=== PATIENT | female | born 1940 | race Caucasian/White ===

== ENCOUNTER 2019-09-14 11:41 | Outpatient (CLI) | payer MEDICARE, SELFPAY ==
[2019-09-14 12:13] LABS: Basophils % 0.8 %; Eosinophils # 0.2 10^3/uL (0.0-0.8); Eosinophils % 4.1 %; Hematocrit 41.4 % (37.0-47.0); Lymphocytes # 1.3 10^3/uL (0.8-4.8); Mean Corpuscular HGB Conc 31.4 g/dL (30.0-36.0); Mean Corpuscular Hemoglobin 30.8 pg (28.0-34.0); Mean Corpuscular Volume 98.1 fL (81-99); Monocytes # 0.4 10^3/uL (0.2-0.9); Monocytes % 8.4 %; Neutrophils % 60.5 %; Nucleated Red Blood Cells % 0 %; Platelet Count 162 10^3/cmm (130-400); Red Blood Count 4.22 10^6/uL (4.1-5.3); Red Cell Distribution Width 14.5 % (12.1-15.1); White Blood Count 4.9 10^3/uL (4.0-10.0)
[2019-09-14 12:56] LABS: Alanine Aminotransferase 10 U/L (0-33); Albumin Level 3.8 g/dL (3.5-5.2); Alkaline Phosphatase 82 IU/L (35-105); Anion Gap 15.1 (5-19); Aspartate Amino Transferase 17 U/L (0-32); Blood Urea Nitrogen 16 mg/dL (8-23); Calcium 10.2 mg/dL (8.5-10.5); Carbon Dioxide 28 mmol/L (22-29); Chloride 103 mmol/L (98-107); Globulin 3.1 g/dL (1.3-4.6); Glucose 102 mg/dL (65-115); Lactate Dehydrogenase 140 U/L (135-214); Potassium 4.1 mmol/L (3.5-5.1); Sodium 142 mmol/L (136-145); Total Bilirubin 0.5 mg/dL (0.15-1.2); Total Protein 6.9 g/dL (6.6-8.7)
--- NOTE | 2019-09-15 16:26 | ONC FU_ITS ---
Dr. Lagunas Patient Follow-Up Note Patient: Ammy Vargas Unit #: [id number]: 1940 Dicatated By: Elpidio Lagunas M.D.Date of Visit:Sep 14, 2019 Onc Med Follow-up/Prog Note Chief Complaint: Lymphoma. History of Present Illness: This is an 79 year-old woman with diffuse large B-cell lymphoma, stage IIIA. In July 2015 she developed a golf ball sized lump just below her left jaw. She says that it was treated with an antibiotic and it went away. In October she developed a second lump lower down in the left side of the neck. She was seen by Dr. Brunner 11/21/2015. On 11/29/[address] scans of the neck and chest along with CT-guided FNA biopsy of the neck mass. The CT scans reported a mass in the base of the left neck consistent with enlarged lymph node measuring 4.6 x 4.3 cm. An adjacent lymph node measured 3.1 x 1.8 cm just lateral to it. There was no other adenopathy in the neck area. There were lymph nodes in the left axilla measuring up to 2.9 x 1.6 cm with smaller lymph nodes present in the prevascular in the mediastinum measuring up to 1.2 cm. There were additional enlarged nodes in the retroperitoneum in the upper abdomen, the largest measuring 3.0 x 2.0 cm. The included portions of liver as well as the spleen, kidneys, and adrenal glands appeared unremarkable. The biopsy, though, was nondiagnostic. She was then referred to Dr. Angel and she underwent incisional biopsy of the neck mass on 12/05/2015. Pathology was consistent with malignant lymphoma, large cell, probably diffuse large B-cell lymphoma. By immunohistochemistry the neoplastic cells were noted to be positive for BCL-2, BCL-6, CD10, and CD20. The Ki-67 proliferative index was noted to be high. The tumor cells were negative for LUIS CARLOS YOSELIN, CD30, cyclin D1, MUM-1, and myc protein. I had seen her initially on 12/18/2015. She then had further staging with PET/CT and bone marrow biopsy. The PET/CT showed multiple FDG avid lymph nodes in the left cervical and left supraclavicular area, the largest measuring 3.0 cm. A left retropectoral lymph node measure 2.4 cm and a left anterior mediastinal lymph node measure 2.2 cm. Also noted was an infrarenal retrocaval node measuring 3.5 cm. The spleen was noted to be normal sized but with increased SUV of 4.2 compared to SUV 2.5 in the liver, suggesting possible splenic involvement. Bone marrow aspiration/biopsy on 12/23/2015 showed no involvement with lymphoma. Pathology was reviewed and was again felt to be consistent with diffuse large B-cell lymphoma. The immunohistochemical pattern appears consistent with germinal center B-cell subtype. Her initial LDH was mildly elevated, but a repeat study was normal at 242 U/L. As such, her IPI score and age adjusted IPI score were both in the low-intermediate risk category. She began treatment with R-CHOP chemotherapy, cycle 1 day 1 on 01/09/2016. She did receive cycle 1 prophylaxis with Neulasta. She did develop severe neutropenia, with fab granulocyte count 100, but she recovered uneventfully. Toxicities were otherwise limited to fatigue, mild stomatitis, and mild diarrhea. She then continued chemotherapy with no further dose reductions. She completed her 6th cycle of treatment on 04/22/2016. Her restaging PET/CT on 05/23/2016 showed a single precarinal lymph node measuring 1.2 cm with SUV 2.9 compared to 0.8 cm with no FDG uptake on the prior exam. There was resolution of all other areas of adenopathy. The finding was felt to be equivocal. Repeat CT of the chest on 11/16/2016 showed stable precarinal lymph node measuring 13 mm in its longest diameter. It was not significantly changed over the prior several examinations. There were no additional enlarged lymph nodes. She continued observation/expectant management. She has a history of COPD despite being a nonsmoker. Her other medical illnesses include hypertension, hyperlipidemia, hypothyroidism, GERD, and osteoporosis. INTERIM HISTORY: Surveillance CT scans of the chest, abdomen, and pelvis in 02/19/2017 showed no evidence of mediastinal or hilar lymphadenopathy. There was no abdominal or periaortic lymphadenopathy. There was no evidence of disease progression in the chest, abdomen, or pelvis. She was seen for a follow-up visit on 02/22/2017 and at that time she still complained of having heart fluttering, mainly when she was lying down in bed at night. An event monitor showed normal sinus rhythm with episodes of short runs of PAT's and atrial fibrillation with rapid ventricular rate. A prior Lexiscan MIBI stress test from 07/30/2016 had shown normal perfusion with low probability for obstructive coronary artery disease. She was seen at [facility], but she subsequently returned to see Dr. Lomeli and she then had cardiac evaluation with Dr. Estrada Braswell in [place]. In the course of that evaluation she was started on warfarin, but she was then found to have a low TSH level. Her levothyroxine dosage was reduced from 125 to 112 ???g per day, and her cardiac symptoms subsequently resolved. She initially continued anticoagulation with warfarin, but with subsequent transition to a apixaban. Her surveillance CT scans of the chest, abdomen, and pelvis on 02/24/2018 showed minimal increase in the size of a precarinal lymph node, measuring 10 mm. There was no evidence for recurrent lymphadenopathy in the chest, abdomen, or pelvis. She appears clinically stable at her follow-up visit on 02/28/2018, and she continued on observation/expectant management for the lymphoma. She was seen here on 08/08/2018. At that time she was concerned about some knots in her neck, but there was no evidence of soft tissue mass or lymphadenopathy on her neck CT, and CT of the chest also showed no evidence for a neoplastic process. She continued on observation/expectant management. She is seen for a scheduled visit. She has been feeling pretty good generally. She says that in April she had a skin cancer removed from the left side of her face. Her energy has been down due to bronchitis/flu. It is getting better now. Her ECOG score is 1. Appetite had been down also, but that is better now. She has gained weight. She has not had fever. She did have some night sweating during her recent illness, but that has resolved. She still has some residual cough. She has some shortness of breath with more strenuous activity. She does not have resting dyspnea. She has had some pain in the middle of her chest. She has no GI complaints. She says her bladder function is better. Yesterday she sustained a fracture to her left ring finger while loading wood into the pickup with her . She has no other joint or bone pain. She still has numbness/tingling in her hands and feet since the chemotherapy. Medications: Eliquis 1 Tablet (of 5 mg) Oral b.i.d., Famotidine 1 (40 mg) Tablet Oral b.i.d., Levothroid 1 Tablet (of 112 mcg) Oral daily, Losartan Potassium 1 Tablet (of 100 mg) Oral daily, Metoprolol Tartrate 0.5 Tablet (of 25 mg) Oral b.i.d., Nitroglycerin Tablet, sublingual Sublingual PRN Allergies: HYDROcodone Bitartrate, Levaquin, Sulfa Antibiotics, and Sulfites. Review of Systems: Constitutional - She was sick in July. Her energy is getting better. She does light work at home. Her appetite is good and her weight is up about 5 pounds since her last visit. No fever, chills or hot flashes. She had some sweating at night with her illness. It has been better the last few weeks. ECOG score is 1, ENMT - No sinus congestion/drainage. No mouth sores. No sore throat or difficulty swallowing, Hematologic/Lymphatic - She bruises easily, Respiratory - She has shortness of breath when climbing stairs. She has a cough. No pleuritic pain or hemoptysis, Cardiovascular - She has occasional chest pain/soreness. No palpitations, Gastrointestinal - No nausea or vomiting. She has some heartburn. No diarrhea or constipation. No blood in the stool or black stools, Genitourinary (F) - No dysuria or hematuria. She has urinary frequency at night. No urgency or incontinence, Musculoskeletal - She recently broke her left index finger. She does have some pain with that, Integumentary - She had surgery for a skin cancer removal of the left side of her upper lip, Neurologic - No headache or dizziness. She has numbness and tingling in her hands and toes, Psychiatric - No anxiety or depression. No insomnia. Vital Signs: Performed on Sep 14, 2019 13:07 Height - 60.00 in Weight - 139.2 lbs (HIGH) BSA - 1.60 sq.m BMI - 27.19 Temperature - 97.7 F (LOW) Pulse - 68 /min Respiration - 24 /min BP - 141/68 mm(hg) (HIGH) O2 Sat - 98 % Pain - 7 Physical Examination: Constitutional - She looks pretty good generally, Eyes - Sclerae nonicteric. Conjunctivae clear, ENMT - No lesions noted in the oral cavity, Hematologic/Lymphatic - No cervical, clavicular, or axillary adenopathy, Respiratory - Lungs are clear with some decrease in air movement bilaterally, Cardiovascular - Heart rhythm is regular. There is no murmur, gallop or rub noted, Abdomen - Mildly distended but soft. Liver and spleen are not enlarged. There is no abdominal mass or ascites noted and there is no inguinal adenopathy, Extremities - No lower extremity edema. There is significant swelling and ecchymosis involving the left ring finger. The ecchymosis extends into the distal aspect of the hand, Neurologic - No focal neurologic deficits noted. Lab/Imaging: Test performed on Sep 14, 2019 12:00 LDH (Total) 140 U/L Sodium 142 mmol/L Potassium 4.1 mmol/L Chloride 103 mmol/L CO2 28 mmol/L Anion Gap 15.1 BUN 16 mg/dL Creatinine 0.9 mg/dL Cr Clearance (Est) 49.69 mL/min Glucose 102 mg/dL Calcium 10.2 mg/dL Protein, Total 6.9 g/dL Albumin 3.8 g/dL Globulin 3.1 g/dL Bilirubin, Total 0.5 mg/dL ALT (SGPT) 10 U/L AST (SGOT) 17 U/L Alkaline Phosphatase 82 IU/L WBC 4.9 10 3/uL RBC 4.22 10 6/uL HGB 13.0 g/dL HCT 41.4 % MCV 98.1 fL MCH 30.8 pg MCHC 31.4 g/dL RDW 14.5 % Platelet Count 162 10 3/cmm MPV 11.0 fL Neutrophils 3.0 10 3/uL Lymphocytes 1.3 10 3/uL Monocytes 0.4 10 3/uL Eosinophils 0.2 10 3/uL Basophils 0.0 10 3/uL Neutrophil % 60.5 % Lymphocyte % 26.0 % Monocyte % 8.4 % Eosinophil % 4.1 % Basophils % 0.8 % Impression: 1. Patient with diffuse large B-cell lymphoma involving left cervical/supraclavicular lymph nodes. By clinical evaluation, including PET/CT and bone marrow biopsy, her disease was stage IIIA. Lab studies were requested with the bone marrow, but apparently not done. As such, I did not have a current LDH level to complete her IPI. With normal LDH, though, her score was low intermediate risk by either IPI or age-adjusted IPI. 2. She completed 6 cycles of R-CHOP chemotherapy on 04/22/2016. She had neutropenia with each cycle despite prophylaxis with Neulasta, but she did not had fever or other complications with it. Her restaging PET/CT on 05/23/2016 showed a precarinal lymph node measuring 1.2 cm with SUV of 2.9 compared to 0.8 cm and no FDG in prior PET scan in February. There were no other areas of abnormal uptake, and all other areas of adenopathy had resolved. Her other medical illnesses include: 3. Asthma/COPD. 4. Hypertension. 5. Hyperlipidemia. 6. Hypothyroidism. 7. GERD. 8. Osteoporosis. In May 2016 she had an overnight observation in the hospital after having a significant episode of chest pain and shortness of breath. CT pulmonary angiogram on 07/29/2016 showed no evidence of pulmonary embolism or other acute pathology. She was noted to have prominent mediastinal lymph nodes. Restaging CT scans on 02/19/2017 showed no evidence of mediastinal or hilar lymphadenopathy and no evidence of disease regression in the chest, abdomen, or pelvis. During subsequent follow-up she was started on anticoagulation with warfarin due to episodes of atrial fibrillation with rapid ventricular response. Her anticoagulation was subsequently transitioned to a apixaban. As of her follow-up visit in February 2018 she had otherwise appeared stable clinically. She did have residual fatigue and neuropathy following the chemotherapy, but there was no evidence of recurrence of the lymphoma. She had presented in July 2018 with knots on both sides of her neck, but those appeared to correlate with prominent carotid arteries. There was no evidence of soft tissue mass or lymphadenopathy on her neck CT, and her chest CT at that time also showed no evidence for a neoplastic process. She continued to have some fatigue and she also continued to have some shortness of breath and wheezing. She continued follow-up with her assistant press operator, Dr. Lidia Bowers, in [place]. She continued anticoagulation with apixaban. As of her follow-up visit in March 2019, she was showing some improvement in her clinical status. She continued observation/expectant management for the lymphoma. Since then she has continued to have some fatigue, but there has been gradual improvement in her performance status. Overall, she appears to be doing well clinically with no evidence of recurrence of the lymphoma. Plan: She remains on observation/expectant management for the lymphoma. I did advise her to withhold the apixaban temporarily, at least until the ecchymosis in her hand has stabilized and starts to improve. I will see her again in 6 months. Signed By: Elpidio Lagunas M.D. <<Signature on File>>
== END 2019-09-14 11:42 | disposition home or self-care (01) ==
LOC: ONCMED 11:41
PROVIDERS: Family Provider Family Medicine; PCP Family Medicine; Visit Provider Internal Medicine Medical Oncology
DX: Z08 Encounter for follow-up examination after completed treatment for malignant neoplasm (principal); Z85.72 Personal history of non-Hodgkin lymphomas; J44.9 Chronic obstructive pulmonary disease, unspecified; I10 Essential (primary) hypertension; E78.5 Hyperlipidemia, unspecified; E03.9 Hypothyroidism, unspecified; K21.9 Gastro-esophageal reflux disease without esophagitis; M81.0 Age-related osteoporosis without current pathological fracture; Z79.01 Long term (current) use of anticoagulants; Z92.21 Personal history of antineoplastic chemotherapy; Z85.828 Personal history of other malignant neoplasm of skin; I48.91 Unspecified atrial fibrillation
CPT/HCPCS: 36415; 80053; 83615; 85025; G0463

== ENCOUNTER 2020-01-22 14:51 | Outpatient (CLI) | payer MEDICARE, SELFPAY ==
--- NOTE | 2020-01-24 22:47 | ONC FU_ITS ---
[facility] Patient Note Patient: Ammy Vargas Unit #: [id number]: 1940 Dictated By: Liliya GarcíaDate of Visit: Jan 22, 2020 Onc MED Follow-Up/Prog Note Chief Complaint: Lymphoma. History of Present Illness: This is an 79 year-old woman with diffuse large B-cell lymphoma, stage IIIA. In July 2015 she developed a golf ball sized lump just below her left jaw. She says that it was treated with an antibiotic and it went away. In October she developed a second lump lower down in the left side of the neck. She was seen by Dr. Brunner 11/21/2015. On 11/29/[address] scans of the neck and chest along with CT-guided FNA biopsy of the neck mass. The CT scans reported a mass in the base of the left neck consistent with enlarged lymph node measuring 4.6 x 4.3 cm. An adjacent lymph node measured 3.1 x 1.8 cm just lateral to it. There was no other adenopathy in the neck area. There were lymph nodes in the left axilla measuring up to 2.9 x 1.6 cm with smaller lymph nodes present in the prevascular in the mediastinum measuring up to 1.2 cm. There were additional enlarged nodes in the retroperitoneum in the upper abdomen, the largest measuring 3.0 x 2.0 cm. The included portions of liver as well as the spleen, kidneys, and adrenal glands appeared unremarkable. The biopsy, though, was nondiagnostic. She was then referred to Dr. Angel and she underwent incisional biopsy of the neck mass on 12/05/2015. Pathology was consistent with malignant lymphoma, large cell, probably diffuse large B-cell lymphoma. By immunohistochemistry the neoplastic cells were noted to be positive for BCL-2, BCL-6, CD10, and CD20. The Ki-67 proliferative index was noted to be high. The tumor cells were negative for LUIS CARLOS YOSELIN, CD30, cyclin D1, MUM-1, and myc protein. Dr Lagunas had seen her initially on 12/18/2015. She then had further staging with PET/CT and bone marrow biopsy. The PET/CT showed multiple FDG avid lymph nodes in the left cervical and left supraclavicular area, the largest measuring 3.0 cm. A left retropectoral lymph node measure 2.4 cm and a left anterior mediastinal lymph node measure 2.2 cm. Also noted was an infrarenal retrocaval node measuring 3.5 cm. The spleen was noted to be normal sized but with increased SUV of 4.2 compared to SUV 2.5 in the liver, suggesting possible splenic involvement. Bone marrow aspiration/biopsy on 12/23/2015 showed no involvement with lymphoma. Pathology was reviewed and was again felt to be consistent with diffuse large B-cell lymphoma. The immunohistochemical pattern appears consistent with germinal center B-cell subtype. Her initial LDH was mildly elevated, but a repeat study was normal at 242 U/L. As such, her IPI score and age adjusted IPI score were both in the low-intermediate risk category. She began treatment with R-CHOP chemotherapy, cycle 1 day 1 on 01/09/2016. She did receive cycle 1 prophylaxis with Neulasta. She did develop severe neutropenia, with fab granulocyte count 100, but she recovered uneventfully. Toxicities were otherwise limited to fatigue, mild stomatitis, and mild diarrhea. She then continued chemotherapy with no further dose reductions. She completed her 6th cycle of treatment on 04/22/2016. Her restaging PET/CT on 05/23/2016 showed a single precarinal lymph node measuring 1.2 cm with SUV 2.9 compared to 0.8 cm with no FDG uptake on the prior exam. There was resolution of all other areas of adenopathy. The finding was felt to be equivocal. Repeat CT of the chest on 11/16/2016 showed stable precarinal lymph node measuring 13 mm in its longest diameter. It was not significantly changed over the prior several examinations. There were no additional enlarged lymph nodes. She continued observation/expectant management. She has a history of COPD despite being a nonsmoker. Her other medical illnesses include hypertension, hyperlipidemia, hypothyroidism, GERD, and osteoporosis. INTERIM HISTORY: Surveillance CT scans of the chest, abdomen, and pelvis in 02/19/2017 showed no evidence of mediastinal or hilar lymphadenopathy. There was no abdominal or periaortic lymphadenopathy. There was no evidence of disease progression in the chest, abdomen, or pelvis. She was seen for a follow-up visit on 02/22/2017 and at that time she still complained of having heart fluttering, mainly when she was lying down in bed at night. An event monitor showed normal sinus rhythm with episodes of short runs of PAT's and atrial fibrillation with rapid ventricular rate. A prior Lexiscan MIBI stress test from 07/30/2016 had shown normal perfusion with low probability for obstructive coronary artery disease. She was seen at [facility] care [facility], but she subsequently returned to see Dr. Lomeli and she then had cardiac evaluation with Dr. Estrada Braswell in [place]. In the course of that evaluation she was started on warfarin, but she was then found to have a low TSH level. Her levothyroxine dosage was reduced from 125 to 112 ???g per day, and her cardiac symptoms subsequently resolved. She initially continued anticoagulation with warfarin, but with subsequent transition to a apixaban. Her surveillance CT scans of the chest, abdomen, and pelvis on 02/24/2018 showed minimal increase in the size of a precarinal lymph node, measuring 10 mm. There was no evidence for recurrent lymphadenopathy in the chest, abdomen, or pelvis. She appears clinically stable at her follow-up visit on 02/28/2018, and she continued on observation/expectant management for the lymphoma. She was seen here on 08/08/2018. At that time she was concerned about some knots in her neck, but there was no evidence of soft tissue mass or lymphadenopathy on her neck CT, and CT of the chest also showed no evidence for a neoplastic process. She continued on observation/expectant management. Ms. Vargas presents today for. She has been having pain in her left jaw area and feel that there is swelling there. She states this occurred on Wednesday. Is been difficult to chew for eat due to the pain. She also feels like there are several nodules in her neck/throat area. She states overall she has been more tired. She denies hot flashes or night sweats. She has had no nausea or vomiting. She denies diarrhea or constipation. She states she is just really concerned because this seems to be how her lymphoma started in the very beginning. Her ECOG is 0. Past Medical History: Chronic obstructive pulmonary disease Gastroesophageal reflux disease Hypertension Hypothyroidism Osteoporosis Past Surgical History: Caesarean section x 3 Port removal in 2017 Flu vaccine in 2016 Right subclavian venous access device-Dr Gilliam ([facility] [place] in 2016 Tendon repair left foot in 2009 Allergies: HYDROcodone Bitartrate, Levaquin, Sulfa Antibiotics, and Sulfites. Medications: Eliquis 0.5 Tablet (of 5 mg) Oral b.i.d. Famotidine 1 (40 mg) Tablet Oral b.i.d. Levothroid 1 Tablet (of 112 mcg) Oral daily Losartan Potassium 1 Tablet (of 100 mg) Oral daily Metoprolol Tartrate 0.5 Tablet (of 25 mg) Oral b.i.d. Nitroglycerin Tablet, sublingual Sublingual PRN Family History: Ms. Vargas's mother at age 72: emphysema, and heart disease. Ms. Vargas's father at age 75: stroke. Ms. Vargas has 4 brothers: 1 alive, 3 . Ms. Vargas's first brother's heart attack. Another brother's heart attack. Another brother's heart attack. She has 6 sisters: 4 alive, 2 . Ms. Vargas's first sister's heart disease. Another sister's multiple myeloma. Father of stroke at age 75. Mother had heart disease and COPD. She at age 72. All four of her brothers had coronary artery disease. Three are . One sister also of heart disease and another sister had myeloma. Social History: Ms. Vargas is and she is retired. Ms. Vargas has never smoked. She has no history of drinking. Ms. Vargas reports the following support systems: lives with spouse, significant other, family, or friends, lives in own house, supportive family/friends willing to assist with needs, and adequate transportation available for expected visits. Her diet consists of regular meals. She indicates her activity level as: daily activities. She is a nonsmoker. She does not drink alcohol. Review Of Symptoms: Constitutional Occasional night sweats and some chills. Patient states she has fatigue-no worse than her normal. Denies fevers, weight loss. Allergic/Immunologic No reactions. Eyes Denies significant visual changes. No diplopia. No amaurosis. ENMT Denies changes in hearing, sore throat, mouth sores, difficulty or changes in swallowing ability, and/or sinus drainage. She is having left sided jaw pain with chewing. It started about 4 days ago and is not getting any better. She denies any mouth sores. She has full dentures and has had no recent problems with them. Endocrine No diabetes, thyroid disease or hormone replacement. Denies hot flashes or night sweats. Hematologic/Lymphatic Denies easy bruising or bleeding. The patient denies any tender or palpable lymph nodes. Respiratory Some dyspnea on exertion. Denies chest pain, cough or hemoptysis. Denies orthopnea. Cardiovascular Denies anginal chest pain, palpitations or orthopnea. Gastrointestinal Denies nausea, vomiting, GI bleeding, or constipation. Denies change in bowel habits and/or stool color, no heartburn or early satiety. Genitourinary (F) No hematuria, hesitancy, incontinence, vaginal bleeding, discharge or other problems with urination. Musculoskeletal Pain in hips and legs on occasion-none this week. Denies joint pain, swelling or redness. No decreased range of motion. Integumentary Denies chronic rashes, inflammation, ulcerations or skin changes. Neurologic Denies headache, blurred vision, and no areas of focal weakness or numbness. Normal gait. No sensory problems. Psychiatric Denies insomnia, depression, reggie or mood swings. Vital Signs: Performed on Jan 22, 2020 15:46 Height - 60.00 in Weight - 140.2 lbs (HIGH) BSA - 1.61 sq.m BMI - 27.38 Temperature - 97.9 F (LOW) Pulse - 78 /min Respiration - 19 /min BP - 163/85 mm(hg) (HIGH) O2 Sat - 96 % Pain - 7,0 - Fully active, able to carry on all predisease activities without restrictions. (ECOG) Physical Examination: Constitutional Alert, oriented, no acute distress. Skin pink, warm and dry. Head Normocephalic; atraumatic. Eyes Conjunctivae and sclerae are clear and without icterus. Pupils are reactive and equal. ENMT Sinuses are nontender. No oral exudates, ulcers, masses, thrush or mucositis. Oropharynx clear. Tongue normal. Neck Anterior cervical node feel thick but no distinct adenopathy noted-slightly tender. Otherwise neck is Supple without masses or thyromegaly. No jugular venous distension. Left sided jaw area is mildly swollen with tenderness noted. No open lesions or skin changes. Hematologic/Lymphatic No petechiae or purpura. No tender or palpable lymph nodes in the cervical, supraclavicular, or axillary area. Respiratory Lungs are clear to auscultation without rhonchi or wheezing. Cardiovascular Regular rate and rhythm of heart without murmurs,clicks, gallops or rubs. Back/Spine Non-tender to palpation. Extremities No visible deformities, no cyanosis, clubbing or edema. Musculoskeletal No tenderness or swelling, normal range of motion without obvious weakness. Integumentary No rashes or lesions. Neurologic No sensory or motor deficits, normal cerebellar function, normal gait. Psychiatric Alert and oriented times three. Coherent speech. Verbalizes understanding of our discussions today. Laboratory:Test performed on Sep 14, 2019 12:00 LDH (Total) 140 U/L Sodium 142 mmol/L Potassium 4.1 mmol/L Chloride 103 mmol/L CO2 28 mmol/L Anion Gap 15.1 BUN 16 mg/dL Creatinine 0.9 mg/dL Cr Clearance (Est) 49.69 mL/min Glucose 102 mg/dL Calcium 10.2 mg/dL Protein, Total 6.9 g/dL Albumin 3.8 g/dL Globulin 3.1 g/dL Bilirubin, Total 0.5 mg/dL ALT (SGPT) 10 U/L AST (SGOT) 17 U/L Alkaline Phosphatase 82 IU/L WBC 4.9 10 3/uL RBC 4.22 10 6/uL HGB 13.0 g/dL HCT 41.4 % MCV 98.1 fL MCH 30.8 pg MCHC 31.4 g/dL RDW 14.5 % Platelet Count 162 10 3/cmm MPV 11.0 fL Neutrophils 3.0 10 3/uL Lymphocytes 1.3 10 3/uL Monocytes 0.4 10 3/uL Eosinophils 0.2 10 3/uL Basophils 0.0 10 3/uL Neutrophil % 60.5 % Lymphocyte % 26.0 % Monocyte % 8.4 % Eosinophil % 4.1 % Basophils % 0.8 % Impression: 1. Patient with diffuse large B-cell lymphoma involving left cervical/supraclavicular lymph nodes. By clinical evaluation, including PET/CT and bone marrow biopsy, her disease was stage IIIA. Lab studies were requested with the bone marrow, but apparently not done. As such, I did not have a current LDH level to complete her IPI. With normal LDH, though, her score was low intermediate risk by either IPI or age-adjusted IPI. 2. She completed 6 cycles of R-CHOP chemotherapy on 04/22/2016. She had neutropenia with each cycle despite prophylaxis with Neulasta, but she did not had fever or other complications with it. Her restaging PET/CT on 05/23/2016 showed a precarinal lymph node measuring 1.2 cm with SUV of 2.9 compared to 0.8 cm and no FDG in prior PET scan in February. There were no other areas of abnormal uptake, and all other areas of adenopathy had resolved. Her other medical illnesses include: 3. Asthma/COPD. 4. Hypertension. 5. Hyperlipidemia. 6. Hypothyroidism. 7. GERD. 8. Osteoporosis. In May 2016 she had an overnight observation in the hospital after having a significant episode of chest pain and shortness of breath. CT pulmonary angiogram on 07/29/2016 showed no evidence of pulmonary embolism or other acute pathology. She was noted to have prominent mediastinal lymph nodes. Restaging CT scans on 02/19/2017 showed no evidence of mediastinal or hilar lymphadenopathy and no evidence of disease regression in the chest, abdomen, or pelvis. During subsequent follow-up she was started on anticoagulation with warfarin due to episodes of atrial fibrillation with rapid ventricular response. Her anticoagulation was subsequently transitioned to a apixaban. As of her follow-up visit in February 2018 she had otherwise appeared stable clinically. She did have residual fatigue and neuropathy following the chemotherapy, but there was no evidence of recurrence of the lymphoma. She had presented in July 2018 with knots on both sides of her neck, but those appeared to correlate with prominent carotid arteries. There was no evidence of soft tissue mass or lymphadenopathy on her neck CT, and her chest CT at that time also showed no evidence for a neoplastic process. She continued to have some fatigue and she also continued to have some shortness of breath and wheezing. She continued follow-up with her film cutter, Dr. Lidia Bowers, in [place]. She continued anticoagulation with apixaban. As of her follow-up visit in March 2019, she was showing some improvement in her clinical status. She continued observation/expectant management for the lymphoma. Since then she has continued to have some fatigue, but there has been gradual improvement in her performance status. Overall, she appears to be doing well clinically with no evidence of recurrence of the lymphoma. Plan: 1. We will give her Augmentin 875 for twice daily dosing to take for a week to see if this will resolve her swelling and pain. 2. Have asked that she have a CBC CMP LDH today. 3. I have also asked that she have an x-ray of the mandible. 4. I recommended that she have follow-up PET CT imaging given her history of diffuse large B-cell lymphoma. Her last imaging per PET/CT per our records is May 23, 2016. 5. We will plan to call her with the results of the lab and x-ray once those are available and we will see her back for follow-up after she has her PET/CT. She instructed to call us in the interim should questions or problems arise or if her symptoms are not improving. Signed By: Liliya García-, AOCNP Elpidio Lagunas MD <<Signature on File>>
== END 2020-01-22 14:52 | disposition home or self-care (01) ==
LOC: ONCMED 14:56
PROVIDERS: PCP Family Medicine; Visit Provider Nurse Practitioner
DX: Z08 Encounter for follow-up examination after completed treatment for malignant neoplasm (principal); Z85.72 Personal history of non-Hodgkin lymphomas; J44.9 Chronic obstructive pulmonary disease, unspecified; K21.9 Gastro-esophageal reflux disease without esophagitis; I10 Essential (primary) hypertension; E03.9 Hypothyroidism, unspecified; M81.0 Age-related osteoporosis without current pathological fracture; E78.5 Hyperlipidemia, unspecified; I48.91 Unspecified atrial fibrillation; R68.84 Jaw pain; Z79.01 Long term (current) use of anticoagulants; Z92.21 Personal history of antineoplastic chemotherapy
CPT/HCPCS: 99214

== ENCOUNTER 2020-01-23 07:31 | Outpatient (CLI) | payer MEDICARE, SELFPAY ==
--- NOTE | 2020-01-23 07:37 | XRR_ITS ---
PROCEDURE INFORMATION: Exam: XR Right Mandible, Minimum of 4 Views, Complete Exam date and time: 01/23/2020 8:04 AM Age: 79 years old Clinical indication: Jaw pain; Patient HX: HX of lmymphoma TECHNIQUE: Imaging protocol: XR of the Right mandible, minimum of 4 views. Complete exam. COMPARISON: No relevant prior studies available. FINDINGS: Sinuses: No opacification. Bones/joints: No acute osseous pathology in the visualized mandible, which can be better evaluated with CT or MRI, if clinically indicated. Soft tissues: Unremarkable as visualized. XR/XR mandible min 4V [id number] IMPRESSION: No acute osseous pathology in the visualized mandible.
[2020-01-23 08:36] LABS: Alanine Aminotransferase 12 U/L (0-33); Albumin Level 4.2 g/dL (3.5-5.2); Alkaline Phosphatase 92 IU/L (35-105); Anion Gap 12.7 (5-19); Aspartate Amino Transferase 18 U/L (0-32); Blood Urea Nitrogen 11 mg/dL (8-23); Calcium 10.2 mg/dL (8.5-10.5); Carbon Dioxide 27 mmol/L (22-29); Chloride 103 mmol/L (98-107); Globulin 2.8 g/dL (1.3-4.6); Glucose 108 mg/dL (65-115); Lactate Dehydrogenase 153 U/L (135-214); Osmolality Calculated 285 mOsm/kg (285-295); Potassium 3.7 mmol/L (3.5-5.1); Sodium 139 mmol/L (136-145); Total Bilirubin 0.4 mg/dL (0.15-1.2)
[2020-01-23 08:40] LABS: Basophils % 0.7 %; Eosinophils # 0.3 10^3/uL (0.0-0.8); Hematocrit 42.9 % (37.0-47.0); Hemoglobin 13.4 g/dL (11.5-15.3); Lymphocytes # 1.1 10^3/uL (0.8-4.8); Lymphocytes % 17.6 %; Mean Corpuscular HGB Conc 31.2 g/dL (30.0-36.0); Mean Corpuscular Hemoglobin 30.3 pg (28.0-34.0); Mean Corpuscular Volume 97.1 fL (81-99); Monocytes # 0.5 10^3/uL (0.2-0.9); Monocytes % 8.4 %; Nucleated Red Blood Cells % 0 %; Platelet Count 184 10^3/cmm (130-400); Red Blood Count 4.42 10^6/uL (4.1-5.3); Red Cell Distribution Width 13.7 % (12.1-15.1)
[2020-01-23 10:15] LABS: Erythrocyte Sedimentation Rate 29 mm/hr (0-15)
== END 2020-01-23 07:32 | disposition home or self-care (01) ==
LOC: LAB 07:32
PROVIDERS: PCP Family Medicine; Visit Provider Nurse Practitioner
DX: C85.90 Non-Hodgkin lymphoma, unspecified, unspecified site (principal); R68.84 Jaw pain
CPT/HCPCS: 36415; 70110; 80053; 83615; 85025; 85651

== ENCOUNTER 2020-03-19 11:49 | Outpatient (CLI) | payer MEDICARE, SELFPAY ==
[2020-03-19 12:42] LABS: Basophils # 0.1 10^3/uL (0.0-0.1); Basophils % 0.9 %; Eosinophils # 0.2 10^3/uL (0.0-0.8); Eosinophils % 3.5 %; Hematocrit 42.4 % (37.0-47.0); Hemoglobin 13.1 g/dL (11.5-15.3); Lymphocytes # 1.3 10^3/uL (0.8-4.8); Lymphocytes % 22.9 %; Mean Corpuscular HGB Conc 30.9 g/dL (30.0-36.0); Mean Corpuscular Hemoglobin 30.2 pg (28.0-34.0); Mean Corpuscular Volume 97.7 fL (81-99); Mean Platelet Volume 11.5 fL (7.4-10.4); Monocytes # 0.5 10^3/uL (0.2-0.9); Monocytes % 8.8 %; Neutrophils # 3.47 10^3/uL (1.8-7.7); Neutrophils % 63.5 %; Nucleated Red Blood Cells % 0 %; Platelet Count 162 10^3/cmm (130-400); Red Blood Count 4.34 10^6/uL (4.1-5.3); Red Cell Distribution Width 14.4 % (12.1-15.1); White Blood Count 5.5 10^3/uL (4.0-10.0)
[2020-03-19 13:04] LABS: Alanine Aminotransferase 13 U/L (0-33); Albumin Level 4.4 g/dL (3.5-5.2); Alkaline Phosphatase 84 IU/L (35-105); Anion Gap 19.1 (5-19); Aspartate Amino Transferase 16 U/L (0-32); Blood Urea Nitrogen 13 mg/dL (8-23); Calcium 9.2 mg/dL (8.5-10.5); Carbon Dioxide 22 mmol/L (22-29); Chloride 103 mmol/L (98-107); Globulin 2.7 g/dL (1.3-4.6); Glucose 118 mg/dL (65-115); Lactate Dehydrogenase 168 U/L (135-214); Osmolality Calculated 287 mOsm/kg (285-295); Potassium 4.1 mmol/L (3.5-5.1); Sodium 140 mmol/L (136-145); Total Bilirubin 0.6 mg/dL (0.15-1.2); Total Protein 7.1 g/dL (6.6-8.7)
--- NOTE | 2020-03-20 07:48 | ONC FU_ITS ---
Dr. Lagunas Patient Follow-Up Note Patient: Ammy Vargas Unit #: [id number]: [id number] Dicatated By: Elpidio Lagunas M.D.Date of Visit:Mar 19, 2020 Onc Med Follow-up/Prog Note Chief Complaint: Lymphoma. History of Present Illness: This is an 80 year-old woman with diffuse large B-cell lymphoma, stage IIIA. In July 2015 she developed a golf ball sized lump just below her left jaw. She says that it was treated with an antibiotic and it went away. In October she developed a second lump lower down in the left side of the neck. She was seen by Dr. Brunner 11/21/2015. On 11/29/[address] scans of the neck and chest along with CT-guided FNA biopsy of the neck mass. The CT scans reported a mass in the base of the left neck consistent with enlarged lymph node measuring 4.6 x 4.3 cm. An adjacent lymph node measured 3.1 x 1.8 cm just lateral to it. There was no other adenopathy in the neck area. There were lymph nodes in the left axilla measuring up to 2.9 x 1.6 cm with smaller lymph nodes present in the prevascular in the mediastinum measuring up to 1.2 cm. There were additional enlarged nodes in the retroperitoneum in the upper abdomen, the largest measuring 3.0 x 2.0 cm. The included portions of liver as well as the spleen, kidneys, and adrenal glands appeared unremarkable. The biopsy, though, was nondiagnostic. She was then referred to Dr. Angel and she underwent incisional biopsy of the neck mass on 12/05/2015. Pathology was consistent with malignant lymphoma, large cell, probably diffuse large B-cell lymphoma. By immunohistochemistry the neoplastic cells were noted to be positive for BCL-2, BCL-6, CD10, and CD20. The Ki-67 proliferative index was noted to be high. The tumor cells were negative for LUIS CARLOS YOSELIN, CD30, cyclin D1, MUM-1, and myc protein. I had seen her initially on 12/18/2015. She then had further staging with PET/CT and bone marrow biopsy. The PET/CT showed multiple FDG avid lymph nodes in the left cervical and left supraclavicular area, the largest measuring 3.0 cm. A left retropectoral lymph node measure 2.4 cm and a left anterior mediastinal lymph node measure 2.2 cm. Also noted was an infrarenal retrocaval node measuring 3.5 cm. The spleen was noted to be normal sized but with increased SUV of 4.2 compared to SUV 2.5 in the liver, suggesting possible splenic involvement. Bone marrow aspiration/biopsy on 12/23/2015 showed no involvement with lymphoma. Pathology was reviewed and was again felt to be consistent with diffuse large B-cell lymphoma. The immunohistochemical pattern appears consistent with germinal center B-cell subtype. Her initial LDH was mildly elevated, but a repeat study was normal at 242 U/L. As such, her IPI score and age adjusted IPI score were both in the low-intermediate risk category. She began treatment with R-CHOP chemotherapy, cycle 1 day 1 on 01/09/2016. She did receive cycle 1 prophylaxis with Neulasta. She did develop severe neutropenia, with fab granulocyte count 100, but she recovered uneventfully. Toxicities were otherwise limited to fatigue, mild stomatitis, and mild diarrhea. She then continued chemotherapy with no further dose reductions. She completed her 6th cycle of treatment on 04/22/2016. Her restaging PET/CT on 05/23/2016 showed a single precarinal lymph node measuring 1.2 cm with SUV 2.9 compared to 0.8 cm with no FDG uptake on the prior exam. There was resolution of all other areas of adenopathy. The finding was felt to be equivocal. Repeat CT of the chest on 11/16/2016 showed stable precarinal lymph node measuring 13 mm in its longest diameter. It was not significantly changed over the prior several examinations. There were no additional enlarged lymph nodes. She continued observation/expectant management. She has a history of COPD despite being a nonsmoker. Her other medical illnesses include hypertension, hyperlipidemia, hypothyroidism, GERD, and osteoporosis. INTERIM HISTORY: Surveillance CT scans of the chest, abdomen, and pelvis in 02/19/2017 showed no evidence of mediastinal or hilar lymphadenopathy. There was no abdominal or periaortic lymphadenopathy. There was no evidence of disease progression in the chest, abdomen, or pelvis. She was seen for a follow-up visit on 02/22/2017 and at that time she still complained of having heart fluttering, mainly when she was lying down in bed at night. An event monitor showed normal sinus rhythm with episodes of short runs of PAT's and atrial fibrillation with rapid ventricular rate. A prior Lexiscan MIBI stress test from 07/30/2016 had shown normal perfusion with low probability for obstructive coronary artery disease. She was seen at heart care services, but she subsequently returned to see Dr. Lomeli and she then had cardiac evaluation with Dr. Estrada Braswell in [place]. In the course of that evaluation she was started on warfarin, but she was then found to have a low TSH level. Her levothyroxine dosage was reduced from 125 to 112 ???g per day, and her cardiac symptoms subsequently resolved. She initially continued anticoagulation with warfarin, but with subsequent transition to a apixaban. Her surveillance CT scans of the chest, abdomen, and pelvis on 02/24/2018 showed minimal increase in the size of a precarinal lymph node, measuring 10 mm. There was no evidence for recurrent lymphadenopathy in the chest, abdomen, or pelvis. She appears clinically stable at her follow-up visit on 02/28/2018, and she continued on observation/expectant management for the lymphoma. She was seen here on 08/08/2018. At that time she was concerned about some knots in her neck, but there was no evidence of soft tissue mass or lymphadenopathy on her neck CT, and CT of the chest also showed no evidence for a neoplastic process. She continued on observation/expectant management. She is seen for a scheduled visit. She has been feeling good generally. She has good energy and activity tolerance. Her ECOG score is 0. Appetite is good. Her weight is stable. She has not had fever or night sweats. She does have some sweating with activity, but only around her head. She has some shortness of breath, but she says her breathing is fair. She says she coughs about all the time, but that is chronic. She sometimes has pain in the substernal area, mainly when she is short of breath. She otherwise does not have chest pain. She has not had palpitations or otherwise been aware of her heart being irregular. She has had no lightheadedness/syncope. She has no GI/ complaints other than some heartburn, which she manages with Tums. 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 She has no other joint or bone pain and no other focal neurologic symptoms. Medications: Eliquis 0.5 Tablet (of 5 mg) Oral b.i.d., Famotidine 1 (40 mg) Tablet Oral b.i.d., Levothroid 1 Tablet (of 112 mcg) Oral daily, Losartan Potassium 1 Tablet (of 100 mg) Oral daily, Metoprolol Tartrate 0.5 Tablet (of 25 mg) Oral b.i.d., Nitroglycerin Tablet, sublingual Sublingual PRN Allergies: HYDROcodone Bitartrate, Levaquin, Sulfa Antibiotics, and Sulfites. Review of Systems: Constitutional - She has been feeling good generally. Her energy is good, and she has normal activity. Her appetite is good and her weight is stable. She has not had fever or night sweats. She does have some sweating with activity, but only around her head. ECOG score is 0, ENMT - She has sinus symptoms with rainy weather. No mouth sores. No sore throat or difficulty swallowing, Hematologic/Lymphatic - She has some bruising. No other bleeding, Respiratory - She does have some shortness of breath, but her breathing is fair. She says she coughs about all the time. No pleuritic pain or hemoptysis, Cardiovascular - She has occasional substernal pain, generally when she gets more short of breath. She has not had palpitations or otherwise been aware of her heart being irregular. She has had no lightheadedness/syncope, Gastrointestinal - No nausea or vomiting. She has heartburn, which she manages with Tums. No diarrhea or constipation. No blood in the stool or black stools, Genitourinary (F) - No dysuria or hematuria. No urinary frequency. No urgency or incontinence, Musculoskeletal - She has some arthritis in her right index finger. She has no other joint or bone pain, Integumentary - No skin rash, Neurologic - No headache or dizziness. She has some numbness in her left index finger. No other focal neurologic symptoms, Psychiatric - No anxiety or depression. No insomnia. Vital Signs: Performed on Mar 19, 2020 13:29 Height - 60.00 in Weight - 138.4 lbs (LOW) BSA - 1.60 sq.m BMI - 27.03 Temperature - 97.3 F (LOW) Pulse - 57 /min (LOW) Respiration - 18 /min BP - 153/72 mm(hg) (HIGH) O2 Sat - 95 % (LOW) Pain - 0 Physical Examination: Constitutional - She looks good generally, Eyes - Sclerae nonicteric. Conjunctivae clear, ENMT - No lesions noted in the oral cavity, Hematologic/Lymphatic - No cervical, clavicular, or axillary adenopathy, Respiratory - Lungs are clear with some decrease in air movement bilaterally, Cardiovascular - Heart rhythm is regular. There is no murmur, gallop or rub noted, Abdomen - Soft. Liver and spleen are not enlarged. There is no abdominal mass or ascites noted and there is no inguinal adenopathy, Extremities - No edema. Pedal pulses are palpable bilaterally, Neurologic - No focal neurologic deficits noted. Lab/Imaging: Test performed on Mar 19, 2020 11:55 LDH (Total) 168 U/L Sodium 140 mmol/L Potassium 4.1 mmol/L Chloride 103 mmol/L CO2 22 mmol/L Anion Gap 19.1 BUN 13 mg/dL Creatinine 0.8 mg/dL Cr Clearance (Est) 54.66 mL/min Glucose 118 mg/dL Calcium 9.2 mg/dL Protein, Total 7.1 g/dL Albumin 4.4 g/dL Globulin 2.7 g/dL Bilirubin, Total 0.6 mg/dL ALT (SGPT) 13 U/L AST (SGOT) 16 U/L Alkaline Phosphatase 84 IU/L WBC 5.5 10 3/uL RBC 4.34 10 6/uL HGB 13.1 g/dL HCT 42.4 % MCV 97.7 fL MCH 30.2 pg MCHC 30.9 g/dL RDW 14.4 % Platelet Count 162 10 3/cmm MPV 11.5 fL Neutrophils 3.47 10 3/uL Lymphocytes 1.3 10 3/uL Monocytes 0.5 10 3/uL Eosinophils 0.2 10 3/uL Basophils 0.1 10 3/uL Neutrophil % 63.5 % Lymphocyte % 22.9 % Monocyte % 8.8 % Eosinophil % 3.5 % Basophils % 0.9 % NRBC % 0 % Impression: 1. Patient with diffuse large B-cell lymphoma involving left cervical/supraclavicular lymph nodes. By clinical evaluation, including PET/CT and bone marrow biopsy, her disease was stage IIIA. Lab studies were requested with the bone marrow, but apparently not done. As such, I did not have a current LDH level to complete her IPI. With normal LDH, though, her score was low intermediate risk by either IPI or age-adjusted IPI. 2. She completed 6 cycles of R-CHOP chemotherapy on 04/22/2016. She had neutropenia with each cycle despite prophylaxis with Neulasta, but she did not had fever or other complications with it. Her restaging PET/CT on 05/23/2016 showed a precarinal lymph node measuring 1.2 cm with SUV of 2.9 compared to 0.8 cm and no FDG in prior PET scan in February. There were no other areas of abnormal uptake, and all other areas of adenopathy had resolved. Her other medical illnesses include: 3. Asthma/COPD. 4. Hypertension. 5. Hyperlipidemia. 6. Hypothyroidism. 7. GERD. 8. Osteoporosis. In May 2016 she had an overnight observation in the hospital after having a significant episode of chest pain and shortness of breath. CT pulmonary angiogram on 07/29/2016 showed no evidence of pulmonary embolism or other acute pathology. She was noted to have prominent mediastinal lymph nodes. Restaging CT scans on 02/19/2017 showed no evidence of mediastinal or hilar lymphadenopathy and no evidence of disease regression in the chest, abdomen, or pelvis. During subsequent follow-up she was started on anticoagulation with warfarin due to episodes of atrial fibrillation with rapid ventricular response. Her anticoagulation was subsequently transitioned to a apixaban. As of her follow-up visit in February 2018 she had otherwise appeared stable clinically. She did have residual fatigue and neuropathy following the chemotherapy, but there was no evidence of recurrence of the lymphoma. She had presented in July 2018 with knots on both sides of her neck, but those appeared to correlate with prominent carotid arteries. There was no evidence of soft tissue mass or lymphadenopathy on her neck CT, and her chest CT at that time also showed no evidence for a neoplastic process. She continued to have some fatigue and she also continued to have some shortness of breath and wheezing. She continued follow-up with her documentation manager, Dr. Lidia Bowers, in [place]. She continued anticoagulation with apixaban. As of her follow-up visit in March 2019 she was showing some improvement. She remained on observation/expectant management for the lymphoma, and since then she has continued to have gradual improvement in her performance status. At this point she appears to be doing very well clinically. There has been no evidence of recurrence/progression of the lymphoma, now over 4 years following completion of her chemotherapy. She remains anticoagulated with apixaban for the atrial fibrillation, though she does have concerns about the cost of the medication Plan: She remains on observation/expectant management for the lymphoma. I will just plan to see her again in 1 year. In the meantime, I will give her the option to change anticoagulation to rivaroxaban, which would potentially be much more affordable through the 340B drug program, but that will be subject to the approval of her forest economist. Signed By: Elpidio Lagunas M.D. <<Signature on File>>
== END 2020-03-19 11:50 | disposition home or self-care (01) ==
LOC: ONCMED 11:52
PROVIDERS: PCP Family Medicine; Visit Provider Internal Medicine Medical Oncology
DX: Z08 Encounter for follow-up examination after completed treatment for malignant neoplasm (principal); Z85.72 Personal history of non-Hodgkin lymphomas; I48.91 Unspecified atrial fibrillation; J44.9 Chronic obstructive pulmonary disease, unspecified; I10 Essential (primary) hypertension; E78.5 Hyperlipidemia, unspecified; E03.9 Hypothyroidism, unspecified; K21.9 Gastro-esophageal reflux disease without esophagitis; M81.0 Age-related osteoporosis without current pathological fracture; Z79.01 Long term (current) use of anticoagulants
CPT/HCPCS: 36415; 80053; 83615; 85025; 99214

== ENCOUNTER 2021-03-20 12:16 | Outpatient (CLI) | payer MEDICARE, SELFPAY ==
[2021-03-20 14:00] LABS: Basophils % 0.3 %; Eosinophils # 0.1 10^3/uL (0.0-0.8); Eosinophils % 2.4 %; Hematocrit 40.4 % (37.0-47.0); Hemoglobin 12.8 g/dL (11.5-15.3); Lymphocytes # 1.2 10^3/uL (0.8-4.8); Mean Corpuscular HGB Conc 31.7 g/dL (30.0-36.0); Mean Corpuscular Hemoglobin 31.1 pg (28.0-34.0); Mean Corpuscular Volume 98.3 fl (81-99); Mean Platelet Volume 11.5 fL (7.4-10.4); Monocytes # 0.5 10^3/uL (0.2-0.9); Monocytes % 8.8 %; Neutrophils # 3.93 10^3/uL (1.8-7.7); Neutrophils % 67.8 %; Nucleated Red Blood Cells % 0 %; Platelet Count 163 10^3/cmm (130-400); Red Blood Count 4.11 10^6/uL (4.1-5.3); Red Cell Distribution Width 14.6 % (12.1-15.1); White Blood Count 5.8 10^3/uL (4.0-10.0)
[2021-03-20 14:45] LABS: Alanine Aminotransferase 11 U/L (0-33); Albumin Level 4.1 g/dL (3.5-5.2); Alkaline Phosphatase 91 IU/L (35-105); Anion Gap 13.1 (5-19); Aspartate Amino Transferase 15 U/L (0-32); Blood Urea Nitrogen 14 mg/dL (8-23); Calcium 9.5 mg/dL (8.5-10.5); Carbon Dioxide 27 mmol/L (22-29); Chloride 103 mmol/L (98-107); Globulin 2.3 g/dL (1.3-4.6); Glucose 82 mg/dL (65-115); Lactate Dehydrogenase 195 U/L (135-214); Osmolality Calculated 288 mOsm/kg (285-295); Potassium 4.1 mmol/L (3.5-5.1); Sodium 139 mmol/L (136-145); Total Bilirubin 0.2 mg/dL (0.15-1.2); Total Protein 6.4 g/dL (6.6-8.7)
--- NOTE | 2021-03-23 13:36 | ONC FU_ITS ---
Dr. Lagunas Patient Follow-Up Note Patient: Ammy Vargas Unit #: [id number]: [id number] Dicatated By: Elpidio Lagunas M.D.Date of Visit:Mar 20, 2021 Onc Med Follow-up/Prog Note Chief Complaint: Lymphoma. History of Present Illness: This is an 81 year-old woman with diffuse large B-cell lymphoma, stage IIIA. In July 2015 she developed a golf ball sized lump just below her left jaw. She says that it was treated with an antibiotic and it went away. In October she developed a second lump lower down in the left side of the neck. She was seen by Dr. Brunner 11/21/2015. On 11/29/[address] scans of the neck and chest along with CT-guided FNA biopsy of the neck mass. The CT scans reported a mass in the base of the left neck consistent with enlarged lymph node measuring 4.6 x 4.3 cm. An adjacent lymph node measured 3.1 x 1.8 cm just lateral to it. There was no other adenopathy in the neck area. There were lymph nodes in the left axilla measuring up to 2.9 x 1.6 cm with smaller lymph nodes present in the prevascular in the mediastinum measuring up to 1.2 cm. There were additional enlarged nodes in the retroperitoneum in the upper abdomen, the largest measuring 3.0 x 2.0 cm. The included portions of liver as well as the spleen, kidneys, and adrenal glands appeared unremarkable. The biopsy, though, was nondiagnostic. She was then referred to Dr. Angel and she underwent incisional biopsy of the neck mass on 12/05/2015. Pathology was consistent with malignant lymphoma, large cell, probably diffuse large B-cell lymphoma. By immunohistochemistry the neoplastic cells were noted to be positive for BCL-2, BCL-6, CD10, and CD20. The Ki-67 proliferative index was noted to be high. The tumor cells were negative for LUIS CARLOS YOSELIN, CD30, cyclin D1, MUM-1, and myc protein. I had seen her initially on 12/18/2015. She then had further staging with PET/CT and bone marrow biopsy. The PET/CT showed multiple FDG avid lymph nodes in the left cervical and left supraclavicular area, the largest measuring 3.0 cm. A left retropectoral lymph node measure 2.4 cm and a left anterior mediastinal lymph node measure 2.2 cm. Also noted was an infrarenal retrocaval node measuring 3.5 cm. The spleen was noted to be normal sized but with increased SUV of 4.2 compared to SUV 2.5 in the liver, suggesting possible splenic involvement. Bone marrow aspiration/biopsy on 12/23/2015 showed no involvement with lymphoma. Pathology was reviewed and was again felt to be consistent with diffuse large B-cell lymphoma. The immunohistochemical pattern appears consistent with germinal center B-cell subtype. Her initial LDH was mildly elevated, but a repeat study was normal at 242 U/L. As such, her IPI score and age adjusted IPI score were both in the low-intermediate risk category. She began treatment with R-CHOP chemotherapy, cycle 1 day 1 on 01/09/2016. She did receive cycle 1 prophylaxis with Neulasta. She did develop severe neutropenia, with fab granulocyte count 100, but she recovered uneventfully. Toxicities were otherwise limited to fatigue, mild stomatitis, and mild diarrhea. She then continued chemotherapy with no further dose reductions. She completed her 6th cycle of treatment on 04/22/2016. Her restaging PET/CT on 05/23/2016 showed a single precarinal lymph node measuring 1.2 cm with SUV 2.9 compared to 0.8 cm with no FDG uptake on the prior exam. There was resolution of all other areas of adenopathy. The finding was felt to be equivocal. Repeat CT of the chest on 11/16/2016 showed stable precarinal lymph node measuring 13 mm in its longest diameter. It was not significantly changed over the prior several examinations. There were no additional enlarged lymph nodes. She continued observation/expectant management. She has a history of COPD despite being a nonsmoker. Her other medical illnesses include hypertension, hyperlipidemia, hypothyroidism, GERD, and osteoporosis. INTERIM HISTORY: Surveillance CT scans of the chest, abdomen, and pelvis in 02/19/2017 showed no evidence of mediastinal or hilar lymphadenopathy. There was no abdominal or periaortic lymphadenopathy. There was no evidence of disease progression in the chest, abdomen, or pelvis. She was seen for a follow-up visit on 02/22/2017 and at that time she still complained of having heart fluttering, mainly when she was lying down in bed at night. An event monitor showed normal sinus rhythm with episodes of short runs of PAT's and atrial fibrillation with rapid ventricular rate. A prior Lexiscan MIBI stress test from 07/30/2016 had shown normal perfusion with low probability for obstructive coronary artery disease. She was seen at heart care services, but she subsequently returned to see Dr. Lomeli and she then had cardiac evaluation with Dr. Estrada Braswell in [place]. In the course of that evaluation she was started on warfarin, but she was then found to have a low TSH level. Her levothyroxine dosage was reduced from 125 to 112 ???g per day, and her cardiac symptoms subsequently resolved. She initially continued anticoagulation with warfarin, but with subsequent transition to a apixaban. Her surveillance CT scans of the chest, abdomen, and pelvis on 02/24/2018 showed minimal increase in the size of a precarinal lymph node, measuring 10 mm. There was no evidence for recurrent lymphadenopathy in the chest, abdomen, or pelvis. She appears clinically stable at her follow-up visit on 02/28/2018, and she continued on observation/expectant management for the lymphoma. She was seen here on 08/08/2018. At that time she was concerned about some knots in her neck, but there was no evidence of soft tissue mass or lymphadenopathy on her neck CT, and CT of the chest also showed no evidence for a neoplastic process. She continued on observation/expectant management. She is seen for a scheduled visit. She has been feeling pretty good generally. Her main complaint is that she had suffered a facial/dental injury in September while helping her split wood. She is also undergone bilateral cataract excisions since I last saw her. She has pretty good energy, but she does tire out by afternoon. Her ECOG score is 1. She has good appetite. She has no fever or night sweats. She still has some soreness in her mouth, and she says she cannot eat anything hard. She has no difficulty swallowing. She has chronic cough. She occasionally has shortness of breath and she sometimes has chest pain. She has had some acid reflux at times. She has no other GI complaints. Bladder function remains adequate, though she occasionally has dribbling. She has no significant joint or bone pain. She does not complain of headache or dizziness. She has some numbness in her left hand, mainly the index finger. Medications: Famotidine 1 (40 mg) Tablet Oral b.i.d., Levothroid 1 Tablet (of 112 mcg) Oral daily, Losartan Potassium 1 Tablet (of 100 mg) Oral daily, Metoprolol Tartrate 0.5 Tablet (of 25 mg) Oral b.i.d., Nitroglycerin Tablet, sublingual Sublingual PRN, Rivaroxaban (20 mg) Tablet Oral daily Allergies: HYDROcodone Bitartrate, Levaquin, Sulfa Antibiotics, and Sulfites. Vital Signs: Performed on Mar 20, 2021 14:23 Height - 60.00 in Weight - 135.6 lbs (LOW) BSA - 1.58 sq.m BMI - 26.48 Temperature - 96.8 F (LOW) Pulse - 60 /min Respiration - 18 /min BP - 170/82 mm(hg) (HIGH) O2 Sat - 97 % Pain - 0 Fatigue - 7 Physical Examination: Constitutional - She looks good generally, Eyes - Sclerae nonicteric. Conjunctivae clear, ENMT - No lesions noted in the oral cavity, Hematologic/Lymphatic - No cervical, clavicular, or axillary adenopathy, Respiratory - Lungs sound clear, Cardiovascular - Heart rhythm is regular. There is no murmur, gallop or rub noted, Abdomen - Soft. Liver and spleen are not enlarged. There is no abdominal mass or ascites noted and there is no inguinal adenopathy, Extremities - No edema, Neurologic - No focal neurologic deficits noted. Lab/Imaging: Test performed on Mar 20, 2021 13:02 LDH (Total) 195 U/L Sodium 139 mmol/L Potassium 4.1 mmol/L Chloride 103 mmol/L CO2 27 mmol/L Anion Gap 13.1 BUN 14 mg/dL Creatinine 0.6 mg/dL Cr Clearance (Est) 70.1900 mL/min Glucose 82 mg/dL Osmolality - Calculated 288 mOsm/kg Calcium 9.5 mg/dL Protein, Total 6.4 g/dL Albumin 4.1 g/dL Globulin 2.3 g/dL Bilirubin, Total 0.2 mg/dL ALT (SGPT) 11 U/L AST (SGOT) 15 U/L Alkaline Phosphatase 91 IU/L WBC 5.8 10 3/uL RBC 4.11 10 6/uL HGB 12.8 g/dL HCT 40.4 % MCV 98.3 fl MCH 31.1 pg MCHC 31.7 g/dL RDW 14.6 % Platelet Count 163 10 3/cmm MPV 11.5 fL Neutrophils 3.93 10 3/uL Lymphocytes 1.2 10 3/uL Monocytes 0.5 10 3/uL Eosinophils 0.1 10 3/uL Basophils 0.0 10 3/uL Neutrophil % 67.8 % Lymphocyte % 20.0 % Monocyte % 8.8 % Eosinophil % 2.4 % Basophils % 0.3 % NRBC % 0 % Problem List: 1. Diffuse large B-cell lymphoma involving left cervical/supraclavicular lymph nodes. By clinical evaluation, including PET/CT and bone marrow biopsy, her disease was stage IIIA at initial diagnosis in November 2015. 2. Asthma/COPD. 3. Hypertension. 4. Hyperlipidemia. 5. Hypothyroidism. 6. GERD. 7. Osteoporosis. 8. She has had episodes of atrial fibrillation with rapid ventricular response. Problems Addressed with this Encounter and Plan: Patient with diffuse large B-cell lymphoma involving left cervical/supraclavicular lymph nodes. By clinical evaluation, including PET/CT and bone marrow biopsy, her disease was stage IIIA at initial diagnosis in November 2015. With normal LDH, though, her score was low intermediate risk by either IPI or age-adjusted IPI. She completed 6 cycles of R-CHOP chemotherapy on 04/22/2016. She had neutropenia with each cycle despite prophylaxis with Neulasta, but she did not had fever or other complications with it. Her restaging PET/CT on 05/23/2016 showed a precarinal lymph node measuring 1.2 cm with SUV of 2.9 compared to 0.8 cm and no FDG in prior PET scan in February. There were no other areas of abnormal uptake, and all other areas of adenopathy had resolved. As such, she did appear to have a complete response, and she was then followed on expectant management. During follow-up she has been doing well clinically. She is now close to 5 years out from completion of treatment with no evidence of recurrence of the lymphoma. She continues on expectant managment. I will see her again in one year. Signed By: Elpidio Lagunas M.D. <<Signature on File>>
== END 2021-03-20 12:17 | disposition home or self-care (01) ==
LOC: ONCMED 12:25
PROVIDERS: PCP Student in an Organized Health Care Education/Training Program; Visit Provider Internal Medicine Medical Oncology
DX: Z08 Encounter for follow-up examination after completed treatment for malignant neoplasm (principal); Z85.72 Personal history of non-Hodgkin lymphomas; Z79.899 Other long term (current) drug therapy; Z79.890 Hormone replacement therapy
CPT/HCPCS: 36415; 80053; 83615; 85025; G0463

== ENCOUNTER 2022-04-20 13:01 | Oncology outpatient (recurring) (ONCR) | payer MEDICARE, SELFPAY | END 2022-05-18 23:59 | disposition home or self-care (01) | PROVIDERS: PCP Student in an Organized Health Care Education/Training Program; Visit Provider Internal Medicine Medical Oncology | DX: Z08 Encounter for follow-up examination after completed treatment for malignant neoplasm (principal); Z85.72 Personal history of non-Hodgkin lymphomas; Z92.21 Personal history of antineoplastic chemotherapy; Z92.3 Personal history of irradiation | CPT/HCPCS: 99213 ==